=== PATIENT | male | born 1980 | race Caucasian/White ===

== ENCOUNTER 2023-02-16 17:01 | Inpatient (IN) | payer SELFPAY ==
[~2023-02-16] VITALS: Ht 167.6 cm; Wt 68.0 kg
[2023-02-16] MEDS ORDERED: SODIUM CHLORIDE 0.9% 1,000 ML IV ONE (17:45)
[2023-02-16] MEDS ORDERED: LORAZEPAM 2MG/ML CPJ IV ONE (17:45)
[2023-02-16 17:52] LABS: BASOPHILS % 0.3 % (0.0-2.0); EOSINOPHILS % 0.2 % (0.0-5.0); HEMATOCRIT. 40.9 % (42.0-52.0); HEMOGLOBIN. 13.8 g/dL (14.0-18.0); LYMPHOCYTES % 8.8 % (20.0-50.0); MEAN CORPUSCULAR HEMOGLOBIN 26.8 pg (28.0-32.0); MEAN CORPUSCULAR VOLUME 79.4 fL (80.0-94.0); MEAN PLATELET VOLUME 9.5 fl (7.4-10.4); MONOCYTES % 8.9 % (2.0-8.0); NEUTROPHILS % 81.8 % (40.0-76.0); PLATELET 128 x1000/uL (130-400); RED BLOOD CELL COUNT 5.15 mill/uL (4.7-6.1); RED CELL DISTRIBUTION WIDTH 21.2 % (11.6-14.6)
[2023-02-16 18:12] LABS: CHLORIDE 84 mEq/L (98-107)
[2023-02-16 18:23] LABS: ETHANOL BLOOD < 10 mg/dL
[2023-02-16] MEDS ORDERED: KCL 20MEQ/100ML PREMIX 100 ML IV ONE (18:30)
[2023-02-16] MEDS ORDERED: MORPHINE SULFATE 4 MG/ML CPJ (NOT FOR IM USE) IV ONE (18:45)
[2023-02-16] MEDS ORDERED: ONDANSETRON HCL 4MG/2ML INJ IV ONE (19:00)
[2023-02-16 22:50] VITALS: BP 120/85
[2023-02-16 23:16] VITALS: BP 120/85
[2023-02-17] MEDS ORDERED: MORPHINE SULFATE 2 MG/ML CPJ (NOT FOR IM USE) IV PRN
[2023-02-17] MEDS ORDERED: CLONIDINE 0.1MG TABLET PO PRN
[2023-02-17] MEDS ORDERED: ONDANSETRON HCL 4MG/2ML INJ IV PRN
[2023-02-17] MEDS ORDERED: LORAZEPAM 2MG/ML CPJ IV PRN
[2023-02-17] MEDS ORDERED: ACETAMINOPHEN 325MG TABLET PO PRN
[2023-02-17 00:05] VITALS: BP 128/78
[2023-02-17] MEDS ORDERED: MVI, ADULT NO.1 10 ML, FOLIC ACID 1 MG, THIAMINE HCL 100 MG in SODIUM CHLORIDE 0.9% 1,0... IV SCH ×4 (00:30)
[2023-02-17] MEDS: PANTOPRAZOLE SODIUM 40 MG/VIAL IV SCH ×2 (01:16→08:43)
[2023-02-17] MEDS: DEXT 5%/0.45% NACL 1000ML 1,000 ML IV SCH ×3 (01:16→17:55)
[2023-02-17] MEDS: LEVOFLOXACIN 500MG PREMIX 100 ML IV SCH (01:38)
[2023-02-17 04:00] VITALS: BP 133/69
[2023-02-17 06:53] LABS: BASOPHILS % 0.7 % (0.0-2.0); EOSINOPHILS % 1.2 % (0.0-5.0); HEMATOCRIT. 36.5 % (42.0-52.0); HEMOGLOBIN. 12.5 g/dL (14.0-18.0); LYMPHOCYTES % 12.3 % (20.0-50.0); MEAN CORPUSCULAR HEMOGLOBIN 27.4 pg (28.0-32.0); MEAN PLATELET VOLUME 9.8 fl (7.4-10.4); MONOCYTES % 10.7 % (2.0-8.0); NEUTROPHILS % 75.1 % (40.0-76.0); PLATELET 99 x1000/uL (130-400); RED BLOOD CELL COUNT 4.57 mill/uL (4.7-6.1); RED CELL DISTRIBUTION WIDTH 21.7 % (11.6-14.6)
[2023-02-17 08:00] VITALS: BP 122/87
[2023-02-17 09:03] LABS: CHLORIDE 89 mEq/L (98-107)
[2023-02-17 09:10] LABS: HDL CHOLESTEROL 40 mg/dL (40-59); LDL CHOLESTEROL 255 mg/dL (5-100)
[2023-02-17] MEDS ORDERED: POTASSIUM CHLORIDE INJ 40 MEQ in DEXT 5% WATER 250 ML IV ONE (10:45)
[2023-02-17] MEDS: KCL 20MEQ/100ML X 2 FOR TOTAL KCL 40MEQ/200ML IV SCH ×2 (11:59→14:36)
[2023-02-17 12:00] VITALS: BP 131/84
[2023-02-17 12:57] LABS: CLARITY URINE CLEAR (CLEAR); COLOR URINE DARK YELLOW (YELLOW); KETONES URINE 1+ (NEGATIVE); LEUKOCYTE ESTERASE URINE TRACE (NEGATIVE); NITRITE URINE NEGATIVE (NEGATIVE); OCCULT BLOOD URINE NEGATIVE (NEGATIVE); PH URINE 7.5 (4.5-8.0); PROTEIN URINE TRACE (NEGATIVE); UROBILINOGEN URINE >8.0 E.U./dL (0.2-1.0)
[2023-02-17 13:12] LABS: *AMPHETAMINES SCREEN URINE NEGATIVE (NEGATIVE); *BARBITURATES SCREEN URINE NEGATIVE (NEGATIVE); *BENZODIAZEPINES SCREEN URINE NEGATIVE (NEGATIVE); *COCAINE SCREEN URINE NEGATIVE (NEGATIVE); CANNABINOID URINE SCREEN NEGATIVE (NEGATIVE); METHADONE URINE SCREEN NEGATIVE (NEGATIVE); OPIATES URINE SCREEN PRESUMTIVE POSITIVE (NEGATIVE); PHENCYCLIDINE URINE SCREEN NEGATIVE (NEGATIVE)
[2023-02-17 16:00] VITALS: BP 103/56
[2023-02-17 20:00] VITALS: BP 120/89
[2023-02-17] MEDS ORDERED: MAGNESIUM 1 G PREMIX 100 ML IV NR (21:00)
[2023-02-17] MEDS: SODIUM CHLORIDE 0.9% 1,000 ML IV SCH (22:59)
[2023-02-18] VITALS (7 sets, daily range): BP systolic 85–120; BP diastolic 51–75
[2023-02-18] MEDS: LEVOFLOXACIN 500MG PREMIX 100 ML IV SCH (00:24)
[2023-02-18] MEDS ORDERED: FOLIC ACID 1 MG, THIAMINE HCL 100 MG, MVI, ADULT NO.1 10 ML in DEXTROSE 5% WATER 1,000 ML IV ONE ×4 (01:00)
[2023-02-18 06:26] LABS: BASOPHILS % 0.9 % (0.0-2.0); EOSINOPHILS % 3.9 % (0.0-5.0); HEMATOCRIT. 35.4 % (42.0-52.0); HEMOGLOBIN. 11.9 g/dL (14.0-18.0); LYMPHOCYTES % 18.4 % (20.0-50.0); MEAN CORPUSCULAR HEMOGLOBIN 27.2 pg (28.0-32.0); MEAN PLATELET VOLUME 9.6 fl (7.4-10.4); NEUTROPHILS % 67.8 % (40.0-76.0); PLATELET 100 x1000/uL (130-400); RED BLOOD CELL COUNT 4.37 mill/uL (4.7-6.1); RED CELL DISTRIBUTION WIDTH 21.2 % (11.6-14.6)
[2023-02-18 06:56] LABS: CHLORIDE 95 mEq/L (98-107)
[2023-02-18] MEDS: PANTOPRAZOLE SODIUM 40 MG/VIAL IV SCH (09:05)
[2023-02-18] MEDS ORDERED: POTASSIUM CHLORIDE 20MEQ TABLET SR PO NR (10:00)
[2023-02-18] MEDS: SODIUM CHLORIDE 0.9% 1,000 ML IV SCH ×2 (11:25→18:00)
[2023-02-18] MEDS ORDERED: POTASSIUM CHLORIDE INJ 40 MEQ in DEXT 5% WATER 250 ML IV NR (12:00)
[2023-02-18] MEDS ORDERED: POTA-354 MT (14:57)
[2023-02-18] MEDS ORDERED: THIA100T72 MT (14:57)
[2023-02-18] MEDS ORDERED: PROT40 MT (14:58)
[2023-02-18] MEDS ORDERED: NALOXONE HCL 0.4MG/ML VIAL IV PRN (16:45)
[2023-02-18 18:02] LABS: CHLORIDE 98 mEq/L (98-107)
== END 2023-02-18 20:50 | disposition home or self-care (01) | DRG 282 ==
LOC: ER 17:29 → MICUSO 18:54 → 7WST 22:20
PROVIDERS: ADMIT Internal Medicine; ATTEND Internal Medicine
DX: K85.20 Alcohol induced acute pancreatitis without necrosis or infection (principal); K72.00 Acute and subacute hepatic failure without coma; E87.1 Hypo-osmolality and hyponatremia; E86.1 Hypovolemia; E87.6 Hypokalemia; R73.9 Hyperglycemia, unspecified; R74.01 Elevation of levels of liver transaminase levels; F10.239 Alcohol dependence with withdrawal, unspecified; F17.210 Nicotine dependence, cigarettes, uncomplicated
CPT/HCPCS: 36415; 76705; 80048; 80053; 80061; 80305; 80307; 80320; 80329; 81003; 83735; 85025; 99285; C9113; J1956; J2060; J2270; J2405; J3411; J3475; J3480; J3490; J7030; J7060; J7070; G0480